=== PATIENT | male | born 1955 | race African-American/Black ===

== ENCOUNTER 2016-12-06 19:34 | Emergency (ER) | payer MEDICARE ==
[~2016-12-06] VITALS: Ht 167.6 cm; Wt 68.0 kg
[~2016-12-06 19:34] MED LIST: AMLO5TAB2 PO; ASPI1TAB69 PO; CLOP75TA PO; HYDR12.56 PO; METO100T PO; PRAV80TA2 PO
[2016-12-06 21:06] VITALS: BP 125/78; PULSE 80; RESP 18; TEMP 97.8; O2SAT 99
--- NOTE | 2016-12-06 21:33 | PD ---
HPI Chief Complaint: Psychiatric Symptoms Time Seen by Provider: 21:20 Travel History International Travel<30 days: No Contact w/Intl Traveler<30days: No Traveled to known affect area: No History of Present Illness HPI Patient is a 61-year-old male who was brought to the emergency room under Charles act by [facility] for evaluation. Patient is alert and oriented 3 this time, patient denies suicidal or homicidal complaints. Patient was placed under Charles act as patient was found to be "mostly incoherent and is unable to articulate a safety plan. He is not alert to time, place or situation. He is unable to vouch for safety, and lacks insight regarding his current situation." PFSH Past Medical History Arthritis: No Asthma: No Autoimmune Disease: No Blood Disorders: No Anxiety: No Depression: No Heart Rhythm Problems: No Cancer: No Cardiac Catheterization: No Cardiovascular Problems: Yes (mi) High Cholesterol: No Chemotherapy: No Chest Pain: Yes Congestive Heart Failure: No COPD: No Cerebrovascular Accident: No Diabetes: No Diminished Hearing: No Endocrine: No GERD: No Glaucoma: No Genitourinary: No Headaches: No Hepatitis: No Hiatal Hernia: No Hypertension: Yes Immune Disorder: No Kidney Stones: No Medical other: Yes (HX OF STROKE, POOR CIRCULATION RT LEG,PVD) Musculoskeletal: No Neurologic: No Psychiatric: No Reproductive: No Respiratory: No Migraines: No Myocardial Infarction: Yes (2005) Radiation Therapy: No Renal Failure: No Seizures: No Sickle Cell Disease: No Sleep Apnea: No Thyroid Disease: No Ulcer: No Past Surgical History Abdominal Surgery: No AICD: No Appendectomy: No Arteriovenous Shunt: No Body Medical Devices: PIN OR SCREW IN LEFT ANKLE Cardiac Surgery: Yes (cardiac by-pass) Cholecystectomy: No 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) Ear Surgery: No Endocrine Surgery: No Eye Surgery: No Genitourinary Surgery: No Gynecologic Surgery: Yes Insulin Pump: No Joint Replacement: No Oral Surgery: No Pacemaker: No Thoracic Surgery: No Other Surgery: Yes (CABG 2005 & RIGHT FOOT REPAIR 1999) Social History Alcohol Use: Yes (X2 BEERS PER WEEK) Tobacco Use: Yes (1PP EVERY 2 DAYS) Substance Use: No Allergies-Medications (Allergen,Severity, Reaction): Coded Allergies: No Known Allergies (Verified , 12/06/16) Reported Meds & Prescriptions Reported Meds & Active Scripts Active Reported Pravastatin 80 Mg Tab 80 Mg PO DAILY Hydrochlorothiazide 12.5 Mg Tab 12.5 Mg PO DAILY Metoprolol Tartrate 100 Mg Tab 50 Mg PO BID Clopidogrel (Clopidogrel Bisulfate) 75 Mg Tab 75 Mg PO DAILY Aspirin 81 Mg Tabdr 81 Mg PO DAILY Amlodipine (Amlodipine Besylate) 5 Mg Tab 5 Mg PO DAILY Review of Systems General / Constitutional: No: Fever Eyes: No: Visual changes HENT: No: Headaches Cardiovascular: No: Chest Pain or Discomfort Respiratory: No: Shortness of Breath Gastrointestinal: No: Abdominal Pain Genitourinary: No: Dysuria Musculoskeletal: No: Pain Skin: No Rash Neurologic: No: Weakness Psychiatric: No: Anxiety, Depression, Suicidal Ideations Endocrine: No: Polydipsia Hematologic/Lymphatic: No: Easy Bruising Physical Exam Narrative GENERAL: No acute distress, nontoxic SKIN: Focused skin assessment warm/dry. HEAD: Atraumatic. Normocephalic. EYES: Pupils equal and round. No scleral icterus. No injection or drainage. ENT: No nasal bleeding or discharge. Mucous membranes pink and moist. NECK: Trachea midline. No JVD. CARDIOVASCULAR: Regular rate and rhythm. No murmur appreciated. RESPIRATORY: No accessory muscle use. Clear to auscultation. Breath sounds equal bilaterally. GASTROINTESTINAL: Abdomen soft, non-tender, nondistended. Hepatic and splenic margins not palpable. MUSCULOSKELETAL: No obvious deformities. No clubbing. No cyanosis. No edema. NEUROLOGICAL: Awake and alert. No obvious cranial nerve deficits. Motor grossly within normal limits. Normal speech. PSYCHIATRIC: Appropriate mood and affect; insight and judgment normal. Data Data Last Documented VS Vital Signs Date Time Temp Pulse Resp B/P Pulse Ox O2 Delivery O2 Flow Rate FiO2 12/06/16 21:14 60 97 12/06/16 21:06 97.8 125/78 99 Orders Complete Blood Count With Diff (12/06/16 21:23) Comprehensive Metabolic Panel (12/06/16 21:23) Psych Screen (12/06/16 21:23) Drug Screen, Random Urine (12/06/16 21:23) MDM Medical Decision Making Medical Screen Exam Complete: Yes Emergency Medical Condition: Yes Interpretation(s) Vital Signs Date Time Temp Pulse Resp B/P Pulse Ox O2 Delivery O2 Flow Rate FiO2 12/06/16 21:14 60 97 12/06/16 21:06 97.8 80 18 125/78 99 Differential Diagnosis Depression Narrative Course Patient is a 61-year-old male who presents to emergency room under Charles act. Patient is alert and oriented 3 in the emergency room, patient with no complaints. Patient denies suicidal or homicidal ideations at this time. Plan to obtain psychiatric screening labs, will have patient seen by psychiatric screeners after labs have been resulted Belle Ornelas DO Dec 06, 2016 21:33
[2016-12-06 22:11] LABS: AUTOMATED NEUTROPHIL # 3.7 TH/MM3 (1.8-7.7); BASOPHIL % 0.4 % (0.0-2.0); EOSINOPHIL # 0.1 TH/MM3 (0-0.4); EOSINOPHIL % 1.8 % (0.0-4.0); HEMATOCRIT 45.4 % (39.0-51.0); HEMO FLAGS DIFF FINAL; LYMPH % 31.5 % (9.0-44.0); LYMPHOCYTE # 2.1 TH/MM3 (1.0-4.8); MEAN CELL VOLUME 82.6 FL (80.0-100.0); MEAN CORPUSCULAR HEMOGLOBIN 26.7 PG (27.0-34.0); MEAN CORPUSCULAR HGB CONC 32.4 % (32.0-36.0); MONO % 11.8 % (0.0-8.0); NEUT % 54.5 % (16.0-70.0); PLATELET COUNT 168 TH/MM3 (150-450); RED CELL DISTRIBUTION WIDTH 13.7 % (11.6-17.2); WHITE BLOOD COUNT 6.8 TH/MM3 (4.0-11.0)
[2016-12-06 22:36] LABS: ALT (GPT) 31 U/L (12-78); ANION GAP 7 MEQ/L (5-15); AST (GOT) 22 U/L (15-37); BICARBONATE 31.3 MEQ/L (21.0-32.0); BLOOD UREA NITROGEN 20 MG/DL (7-18); CHLORIDE 99 MEQ/L (98-107); GLOMERULAR FILTRATION RATE 55 ML/MIN (>89); POTASSIUM 3.8 MEQ/L (3.5-5.1); SODIUM (NA) 137 MEQ/L (136-145)
[2016-12-06 22:37] LABS: AMPHETAMINE, URINE NEG (NEG); BARBITURATES, URINE NEG (NEG); COCAINE, URINE NEG (NEG)
[2016-12-06 22:38] LABS: ALKALINE PHOSPHATASE 70 U/L (45-117); TOTAL BILIRUBIN ADULT 0.4 MG/DL (0.2-1.0)
[2016-12-06 23:40] VITALS: BP 125/67; PULSE 84; RESP 18; O2SAT 97
[2016-12-07 01:58] VITALS: BP 127/58; PULSE 76; RESP 19; O2SAT 98
[2016-12-07 06:06] VITALS: BP 114/58; PULSE 65; RESP 18; O2SAT 98
--- NOTE | 2016-12-07 11:51 | PD.CONS ---
Provisional Diagnosis Admission Date [place] I. Mild neurocognitive disorder [place] II. 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 DM, HTN [place] IV. Recently released from [facility] [place] V. 55 History of Present Illness Service Psychiatry Consult Requested By Primary Care Physician No Primary Care Physician HPI The patient is a 61-year-old man, he was released from the six- month incarceration yesterday, now homeless, unemployed, without any previous psychiatric history, history of alcohol use disorder, medical history hypertension and diabetes mellitus, who was brought to the emergency room under Charles act by [facility] for evaluation. Patient is alert and oriented 3 this time, patient denies suicidal or homicidal complaints. Patient was placed under Charles act as patient was found to be "mostly incoherent and is unable to articulate a safety plan. He is not alert to time, place or situation. He is unable to vouch for safety, and lacks insight regarding his current situation.". On psychiatric evaluation today patient is found calm, cooperative, chatting with other patients, patient says that he was released from [facility] yesterday after being incarcerated for about 6 months for a case of domestic violence. Patient reports good mood, he says that he is motivated to go to a nursing home and to get back his life. He denies depressive symptoms, he denies anhedonia, he denies hopelessness, and he denies helplessness, he denies suicidal or homicidal ideation, he denies visual and auditory hallucinations. Patient is logical, coherent and relevant. Patient clarifies that he is [facility] "low issues". Patient is fully oriented 3, Mini-Mental state perform and in 24/30, but patient has a low level of education. No episodic agitation, aggressive behavior, hostility reported on longitudinal observation. Review of Systems Constitutional: DENIES: Diaphoretic episodes, Fatigue, Fever, Weight gain, Weight loss, Chills, Dizziness, Change in appetite, Night Sweats Endocrine: DENIES: Heat/cold intolerance, Polydipsia, Polyuria, Polyphagia Eyes: DENIES: Blurred vision, Diplopia, Eye inflammation, Eye pain, Vision loss , Photosensitivity, Double Vision Ears, nose, mouth, throat: DENIES: Tinnitus, Hearing loss, Vertigo, Nasal discharge, Oral lesions, Throat pain, Hoarseness, Ear Pain, Running Nose, Epistaxis, Sinus Pain, Toothache, Odynophagia Respiratory: DENIES: Apneas, Cough, Snoring, Wheezing, Hemoptysis, Sputum production, Shortness of breath Cardiovascular: DENIES: Chest pain, Palpitations, Syncope, Dyspnea on Exertion , PND, Lower Extremity Edema, Orthopnea, Claudication Genitourinary: DENIES: Sexual dysfunction, Urinary frequency, Urinary incontinence, Urgency, Hematuria, Dysuria, Nocturia, Penile Discharge, Testicular Pain, Testicular Swelling Integumentary: DENIES: Abnormal pigmentation, Nail changes, Pruritus, Rash Hematologic/lymphatic: DENIES: Bruising, Lymphadenopathy Immunologic/allergic: DENIES: Eczema, Urticaria Neurologic: DENIES: Abnormal gait, Headache, Localized weakness, Paresthesias, Seizures, Speech Problems, Tremor, Poor Balance Psychiatric: DENIES: Anxiety, Confusion, Mood changes, Depression, Hallucinations, Agitation, Suicidal Ideation, Homicidal Ideation, Delusions Past Family Social History Coded Allergies: No Known Allergies (Verified , 12/06/16) Reported Medications Pravastatin 80 Mg Tab80 Mg PO DAILY #30 TAB Ref 0 08/23/16 Hydrochlorothiazide 12.5 Mg Tab12.5 Mg PO DAILY #30 TAB Ref 0 08/23/16 Metoprolol Tartrate 100 Mg Tab50 Mg PO BID #30 TAB Ref 0 08/23/16 Clopidogrel 75 Mg Tab75 Mg PO DAILY #30 TAB Ref 0 08/23/16 Aspirin 81 Mg Tabdr81 Mg PO DAILY #30 TAB 08/23/16 Amlodipine 5 Mg Tab5 Mg PO DAILY #30 TAB Ref 0 08/23/16 Family History He denies a Family history Social History Patient was born and raised in [place], he now lives in a nursing home, recently released from [facility], single, no family, highest level of education is seventh grade Physical Exam On physical exam, patient seems to be cachectic, no EPS, no tremors, no psychomotor agitation or retardation, no stiffness present Vital Signs Vital Signs Date Time Temp Pulse Resp B/P Pulse Ox O2 Delivery O2 Flow Rate FiO2 12/07/16 06:06 65 18 114/58 98 12/07/16 01:58 Room Air 12/06/16 21:06 97.8 Lab Results Toxicology and BAL is negative Mental Status Examination Appearance man, disheveled, poor hygiene, [facility], older than his stated age, calm and cooperative Speech: Unremarkable Orientation: x3 Memory: Unremarkable Thought Process: Logical Thought Content: Unremarkable Hallucination Type: None Suicidal Ideation: No Previous Suicide Attempts: No Homicidal Ideation: No Previous Homicide Attempts: No Judgment: WNL Affect: Good Mood: Appropriate Motor Activity: Normal gait Assessment & Plan Problem List: (1) Mild neurocognitive disorder Assessment & Plan: At the moment of this evaluation the patient does not present any symptomatology suggestive of acute depression, anxiety, yony or psychosis. Patient denies suicidal and homicidal ideation, he denies visual and auditory hallucinations. Patient is oriented 3, logical, coherent and relevant. Mini-Mental state is 24 of 30, with visible impairment in abstract thought, executive function, immediate recall. Cognitive impairment could be either secondary to chronic alcoholism, low level of education or ongoing neurocognitive process. More neuropsychological testing would be needed in order to assess the right diagnosis. However, the patient does not meet criteria for psychiatric admission at this moment, extensive support, motivation psycho education provided. Charles act will be. ICD Code: G31.84 Assessment & Plan Estimated LOS: Oliver Lopez MD Dec 07, 2016 11:51
[2016-12-10] MEDS ORDERED: NAPR375T PO (11:22)
[2016-12-10] MEDS ORDERED: ASPI1TAB69 PO (11:24)
[2016-12-10] MEDS ORDERED: CLOP75TA PO (11:24)
[2016-12-10] MEDS ORDERED: PRAV80TA2 PO (11:24)
[2016-12-31] MEDS ORDERED: METO25TA3 PO (10:24)
[2017-01-21] MEDS ORDERED: METO25TA3 PO (09:44)
== END 2016-12-07 08:42 | disposition home or self-care (01) ==
LOC: NEPD 19:34 → NEPJ 12-07 08:42
DX: F41.0 Panic disorder [episodic paroxysmal anxiety] (principal); I73.9 Peripheral vascular disease, unspecified; F17.210 Nicotine dependence, cigarettes, uncomplicated; I25.2 Old myocardial infarction; Z86.73 Personal history of transient ischemic attack (TIA), and cerebral infarction without residual deficits; Z95.1 Presence of aortocoronary bypass graft
CPT/HCPCS: 80053; 80307; 85025; 99284

== ENCOUNTER → 2017-01-07 | Outpatient (CLI) | payer MEDICARE ==
[~2017-01-07] MED LIST changes: -AMLO5TAB2 PO; -HYDR12.56 PO; -METO100T PO; +METO25TA3 PO; +NAPR375T PO
[2017-01-07 09:37] LABS: HEMATOCRIT 47.1 % (39.0-51.0); MEAN CELL VOLUME 84.3 FL (80.0-100.0); MEAN CORPUSCULAR HEMOGLOBIN 27.8 PG (27.0-34.0); PLATELET COUNT 147 TH/MM3 (150-450); RED BLOOD COUNT 5.58 MIL/MM3 (4.50-5.90); RED CELL DISTRIBUTION WIDTH 16.5 % (11.6-17.2); REVIEW FLAG FINAL; WHITE BLOOD COUNT 4.1 TH/MM3 (4.0-11.0)
[2017-01-07 10:13] LABS: ALKALINE PHOSPHATASE 57 U/L (45-117); ALT (GPT) 16 U/L (12-78); ANION GAP 9 MEQ/L (5-15); AST (GOT) 18 U/L (15-37); BICARBONATE 25.5 MEQ/L (21.0-32.0); BLOOD UREA NITROGEN 17 MG/DL (7-18); CHLORIDE 105 MEQ/L (98-107); GLOMERULAR FILTRATION RATE 77 ML/MIN (>89); GLUCOSE,FASTING 108 MG/DL (74-99); HDL CHOLESTEROL 71.9 MG/DL (40.0-60.0); LDL CHOLESTEROL 79 MG/DL (0-99); POTASSIUM 3.9 MEQ/L (3.5-5.1); SODIUM (NA) 139 MEQ/L (136-145); TOTAL BILIRUBIN ADULT 0.7 MG/DL (0.2-1.0)
== END ==
LOC: CLAB 09:08
PROVIDERS: ATTEND Family Medicine
DX: I10 Essential (primary) hypertension (principal); I25.10 Atherosclerotic heart disease of native coronary artery without angina pectoris; E78.5 Hyperlipidemia, unspecified
CPT/HCPCS: 36415; 80053; 80061; 85027